=== PATIENT | female | born 1960 | race Caucasian/White ===

== ENCOUNTER 2021-06-23 10:31 | Emergency (ER) | payer BC ==
--- NOTE | 2021-06-23 11:10 | EDM.PDOC ---
ED HPI GENERAL MEDICAL PROBLEM - General Chief Complaint: Respiratory Problem Stated Complaint: SHORTNESS OF BREATH Time Seen by Provider: 06/23/21 10:54 Source of Information: Reports: Patient History Limitations: Reports: No Limitations - History of Present Illness INITIAL COMMENTS - FREE TEXT/NARRATIVE: The patient presents with left arm numbness. This started this morning at work at 6am. She is a cashier courtesy booth. She is currently being treated for a lung infection with zithromax, prednisone and albuterol. She feels her breathing is getting better. She has no weakness in her arm or hand. She has no pain in her neck or arm. She has never had this happen before. She has no headache, chest pain or shortness of breath. She has no abdominal pain, nausea or vomiting. She has a history of asthma but no history of CVA or heart problems. Onset: Sudden Duration: Hour(s): (Left arm numbness) Location: Reports: Upper Extremity, Left Severity: Moderate Improves with: Reports: None Worsens with: Reports: None Associated Symptoms: Reports: No Other Symptoms - Related Data Allergies Allergy/AdvReac Type Severity Reaction Status Date / Time codeine Allergy Vomiting Verified 06/23/21 10:44 Home Meds: Home Meds Albuterol [Ventolin HFA] 1 puff INH Q4H PRN 06/23/21 [History] Benzonatate 100 mg PO DAILY PRN 06/23/21 [History] Budesonide/Formoterol Fumarate [Budesonide-Formoterol 160-4.5] 1 puff INH DAILY 06/23/21 [History] Losartan [Cozaar] 50 mg PO DAILY 06/23/21 [History] predniSONE 20 mg PO DAILY 06/23/21 [History] ED ROS GENERAL - Review of Systems Review Of Systems: See Below Constitutional: Reports: No Symptoms HEENT: Reports: No Symptoms Respiratory: Reports: No Symptoms Cardiovascular: Reports: No Symptoms Endocrine: Reports: No Symptoms GI/Abdominal: Reports: No Symptoms : Reports: No Symptoms Musculoskeletal: Reports: Other (left arm numbness) Skin: Reports: No Symptoms Neurological: Reports: Numbness (left arm) ED EXAM, GENERAL - Physical Exam Exam: See Below Exam Limited By: No Limitations General Appearance: Alert, No Apparent Distress Ears: Normal External Exam Nose: Normal Inspection Head: Atraumatic, Normocephalic Neck: Normal Inspection, Supple, Non-Tender Respiratory/Chest: No Respiratory Distress, Lungs Clear, Normal Breath Sounds Cardiovascular: Regular Rate, Rhythm, No Edema, No Murmur, No Rub GI/Abdominal: Soft, Non-Tender, No Organomegaly Back Exam: Normal Inspection Extremities: Other (mild numbness to the left arm) Neurological: Alert, Oriented, Other (Normal strength in both arms and mild numbness and tingling to the left arm with fingers 2 through 4 and up her arm to her neck.) #1 Interpretation EKG Date: 06/23/21 Time: 11:07 Rhythm: NSR Rate (Beats/Min): 64 [place]: Normal P-Wave: Present QRS: Normal ST-T: Normal QT: Normal EKG Interpretation Comments: PVC Course - Vital Signs Last Recorded V/S: Last Vital Signs Temp 98.0 F 06/23/21 10:38 Pulse 73 06/23/21 10:38 Resp 22 H 06/23/21 10:38 BP 149/86 H 06/23/21 10:38 Pulse Ox 91 L 06/23/21 10:38 - Orders/Labs/Meds Orders: Active Orders 24 hr Category Date Time Status Cardiac Monitoring [RC] . DIRECTED Care 06/23/21 11:01 Active Cervical Spine wo Cont [CT] Stat Exams 06/23/21 11:03 Taken Head wo Cont [CT] Stat Exams 06/23/21 11:02 Taken Labs: Laboratory Tests 06/23/21 06/23/21 06/23/21 Range/Units 11:17 11:17 11:17 WBC 13.00 H (3.98-10.04) K/mm3 RBC 4.66 (3.98-5.22) M/mm3 Hgb 14.1 (11.2-15.7) gm/dl Hct 43.5 (34.1-44.9) % MCV 93.3 (79.4-94.8) fl MCH 30.3 (25.6-32.2) pg MCHC 32.4 (32.2-35.5) g/dl RDW Std Deviation 43.6 (36.4-46.3) fL Plt Count 337 (182-369) K/mm3 MPV 9.3 L (9.4-12.3) fl Neut % (Auto) 79.5 H (34.0-71.1) % Lymph % (Auto) 13.8 L (19.3-51.7) % Armstrong % (Auto) 6.1 (4.7-12.5) % Eos % (Auto) 0 L (0.7-5.8) Baso % (Auto) 0.2 (0.1-1.2) % Neut # (Auto) 10.35 H (1.56-6.13) K/mm3 Lymph # (Auto) 1.79 (1.18-3.74) K/mm3 Armstrong # (Auto) 0.79 H (0.24-0.36) K/mm3 Eos # (Auto) 0.00 L (0.04-0.36) K/mm3 Baso # (Auto) 0.02 (0.01-0.08) K/mm3 PT 11.0 (9.7-12.0) SECONDS INR 0.99 APTT 23.6 (21.7-31.4) SECONDS Sodium 140 (136-145) mEq/L Potassium 3.9 (3.5-5.1) mEq/L Chloride 102 (98-107) mEq/L Carbon Dioxide 27 (21-32) mEq/L Anion Gap 14.9 (5-15) BUN 19 H (7-18) mg/dL Creatinine 1.0 (0.55-1.02) mg/dL Est Cr Clr Drug Dosing 53.16 mL/min Estimated GFR (MDRD) 56 (>60) mL/min BUN/Creatinine Ratio 19.0 H (14-18) Glucose 200 H (70-99) mg/dL Calcium 8.5 (8.5-10.1) mg/dL Total Bilirubin 0.6 (0.2-1.0) mg/dL AST 50 H (15-37) U/L ALT 75 H (14-59) U/L Alkaline Phosphatase 64 (46-116) U/L Troponin I < 0.017 (0.00-0.056) ng/mL Total Protein 7.5 (6.4-8.2) g/dl Albumin 3.5 (3.4-5.0) g/dl Globulin 4.0 gm/dL Albumin/Globulin Ratio 0.9 L (1-2) - Re-Assessments/Exams Free Text/Narrative Re-Assessment/Exam: 06/23/21 11:11 I ordered an EKG, CT of her head and cervical spine and labs. 06/23/21 12:56 Her EKG shows a NSR with no acute changes. Her WBC was elevated at 13. Her PT and PTT look good. Her glucose is 200. Her AST is elevated at 50. Her ALT is elevated at 75. Her troponin is negative. The CT of her head shows normal head CT. The CT of her cervical spine shows no fracture or posttraumatic subluxation. Diffuse degenerative change of the cervical spine. NO spinal canal stenosis of the cervical spine. Multilevel degenerative neural foraminal stenosis. I feel her neck is the source. I will give her a couple days off of work and have her follow up with Adriana Mendez for further work up with an MRI. 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 Take tylenol or motrin if your develop any pain. Follow up with Adriana Mendez. Please return if you are worse. Sepsis Event Note (ED) - Evaluation Sepsis Screening Result: No Definite Risk - Focused Exam Vital Signs: Vital Signs Temp Pulse Resp BP Pulse Ox 06/23/21 10:38 98.0 F 73 22 H 149/86 H 91 L - My Orders Last 24 Hours: My Active Orders 06/23/21 11:01 Cardiac Monitoring [RC] . DIRECTED 06/23/21 11:02 Head wo Cont [CT] Stat 06/23/21 11:03 Cervical Spine wo Cont [CT] Stat - Assessment/Plan Last 24 Hours: My Active Orders 06/23/21 11:01 Cardiac Monitoring [RC] . DIRECTED 06/23/21 11:02 Head wo Cont [CT] Stat 06/23/21 11:03 Cervical Spine wo Cont [CT] Stat
--- NOTE | 2021-06-25 08:58 | CT ---
EXAM: CT C-SPINE SPINE WO CON LOCATION: [facility] DATE/TIME: 06/23/2021 11:21 AM INDICATION: Left arm numbness. COMPARISON: None. TECHNIQUE: Routine CT Cervical Spine without IV contrast. Multiplanar reformats. Dose reduction techniques were used. FINDINGS: VERTEBRA: There is minimal degenerative anterolisthesis of C4 upon C5 and C5 upon C6. Alignment of the cervical vertebrae is otherwise normal; however, there is straightening of normal cervical lordosis. Vertebral body heights of the cervical spine are normal. Craniocervical alignment is normal. No evidence for fracture. There is moderate-severe facet arthropathy bilaterally at C2-C3, C3-C4 and C4- C5. CANAL/FORAMINA: No significant degenerative spinal canal stenosis. Moderate degenerative neural foraminal stenosis on the left at C2-C3, bilaterally at C3-C4, on the left at C4-C5 and on the left at C5-C6. PARASPINAL: No extraspinal abnormality. IMPRESSION: 1. No fracture or posttraumatic subluxation. 2. Diffuse degenerative change of the cervical spine as detailed above. 3. No spinal canal stenosis of the cervical spine. 4. Multilevel degenerative neural foraminal stenosis as detailed above. SIGNED BY: Diony Pendleton MD 06/23/2021 1:12 PM [facility]
--- NOTE | 2021-06-25 08:58 | CT ---
EXAM: CT HEAD WITHOUT CONTRAST LOCATION: [facility] DATE/TIME: 06/23/2021, 11:21 AM INDICATION: Left arm numbness. COMPARISON: None. TECHNIQUE: Routine CT Head without IV contrast. Multiplanar reformats. Dose reduction techniques were used. FINDINGS: INTRACRANIAL CONTENTS: No intracranial hemorrhage, extra-axial collection, or mass effect. No CT evidence of acute infarct. Normal parenchymal attenuation. Normal ventricles and sulci. VISUALIZED ORBITS/SINUSES/MASTOIDS: No intraorbital abnormality. No paranasal sinus mucosal disease. No middle ear or mastoid effusion. BONES/SOFT TISSUES: No acute abnormality. IMPRESSION: 1. Normal head CT. SIGNED BY: Diony Pendleton MD 06/23/2021 1:12 PM [facility]
== END 2021-06-23 13:23 | disposition home or self-care (01) ==
LOC: JD.ED 10:31
DX: M47.812 Spondylosis without myelopathy or radiculopathy, cervical region (principal); M48.02 Spinal stenosis, cervical region; Z88.5 Allergy status to narcotic agent; Z79.899 Other long term (current) drug therapy
CPT/HCPCS: 36415; 70450; 70450-26; 72125; 72125-26; 80053; 84484; 85025; 85610; 85730; 93005; 99284-25